=== PATIENT | female | born 1940 | race Caucasian/White ===

== ENCOUNTER → 2016-07-20 | Outpatient (CLI) | payer OTHER, BC | LOC: MMPC 09:00 | PROVIDERS: ATTEND Nurse Practitioner Family | DX: Z01.419 Encounter for gynecological examination (general) (routine) without abnormal findings (principal); E03.9 Hypothyroidism, unspecified; E78.00 Pure hypercholesterolemia, unspecified; Z12.39 Encounter for other screening for malignant neoplasm of breast | CPT/HCPCS: G0101; G0439; G0463 ==

== ENCOUNTER → 2016-07-22 | Outpatient (CLI) | payer OTHER, BC ==
[2016-07-22 11:07] LABS: BUN/CREATININE RATIO 22.22 (6-20); CALCIUM 9.6 mg/dL (8.7-10.7); CREATININE 0.9 mg/dL (0.50-1.20); LDL CHOLESTEROL,CALCULATED 131.8 mg/dL; POTASSIUM 4.7 meq/L (3.8-5.2)
[2016-07-22 12:07] LABS: FREE T4 (FREE THYROXINE) 1.24 ng/dL (0.93-1.71)
== END ==
LOC: LAB 10:14
PROVIDERS: ATTEND Nurse Practitioner Family
DX: E03.9 Hypothyroidism, unspecified (principal); E78.00 Pure hypercholesterolemia, unspecified
CPT/HCPCS: 36415; 80048; 80061; 84439; 84443

== ENCOUNTER → 2016-08-04 | Outpatient (CLI) | payer OTHER, BC ==
--- NOTE | 2016-08-04 14:01 | DI ---
MAMMO U/L DIAGNOSTIC,08/04/2016 1:24 PM: Clinical History: Inverted nipple with vague density involving the left subareolar breast. Previous Exam: July 23, 2016 Findings: A single CC compression view of the right subareolar region, and demonstrates the version of the nipp le on these images. In speaking with the patient, it was revealed that both of her nipples have been inverted her entire life. There is no residual mass identified. There is no architectural distortion. Impression: No mammographic evidence of malignancy. BIRADS: 2: Benign findings Recommendations: Annual screening. Note: Breast examination has been discussed and encouraged, and the patient informed to return if the re is any new palpable abnormality in the interval between screening. Overall imaging assessment: Benign findings.
== END ==
LOC: MAMMO 13:19
PROVIDERS: ATTEND Nurse Practitioner Family
DX: R92.8 Other abnormal and inconclusive findings on diagnostic imaging of breast (principal)
CPT/HCPCS: G0206